=== PATIENT | female | born 1965 | race Caucasian/White ===

== ENCOUNTER 2022-03-31 10:17 | Outpatient (CLI) | payer BC, SELFPAY ==
[2022-03-31 15:46] LABS: Albumin* 4.8 g/dL (3.3-5.0); Chloride* 104 mmol/L (96-114); Sodium* 137 mmol/L (135-149)
[2022-03-31 15:47] LABS: Potassium* 4.4 mmol/L (3.6-5.1)
[2022-03-31 15:49] LABS: Alkaline Phosphatase* 72 U/L (40-150); Aspartate Amino Transferase* 12 U/L (12-35); Bilirubin Total* 0.6 mg/dL (0.1-1.5); Blood Urea Nitrogen* 20 mg/dL (7-30); Carbon Dioxide* 24 mmol/L (20-32); Cholesterol* 245 mg/dL (90-199); Creatinine* 0.7 mg/dL (0.5-1.5); Estimated Glomerular Filt Rate 101 ml/min; Glucose* 100 mg/dL (60-115); Total Protein* 7.4 g/dL (6.0-8.3)
[2022-03-31 15:50] LABS: Alanine Aminotransferase* 14 U/L (4-35); Calcium* 8.9 mg/dL (8.4-10.6); HDL Cholesterol* 93 mg/dL (>=50); LDL Cholesterol Calculated 132 mg/dL (<100); Triglycerides* 100 mg/dL (40-149)
[2022-03-31 20:17] LABS: TSH With Reflex to FT4* 0.885 uIU/mL (0.270-4.200)
== END 2022-03-31 10:18 | disposition home or self-care (01) ==
PROVIDERS: PCP Nurse Practitioner Family; Visit Provider Family Medicine
DX: Z01.419 Encounter for gynecological examination (general) (routine) without abnormal findings (principal); R53.83 Other fatigue; R03.0 Elevated blood-pressure reading, without diagnosis of hypertension; E78.5 Hyperlipidemia, unspecified; R73.03 Prediabetes; Z13.1 Encounter for screening for diabetes mellitus
CPT/HCPCS: 80053; 80061; 84443

== ENCOUNTER 2022-05-25 14:35 | Outpatient (CLI) | payer BC, SELFPAY ==
--- NOTE | 2022-05-25 14:40 | CRLHL7_ITS ---
For Patients: As a result of the Century Cures Act, medical imaging exams and procedure reports are released immediately into your electronic medical record. You may view this report before your referring provider. If you have questions, please contact your health care provider. BILATERAL SCREENING MAMMOGRAM WITH COMPUTER-AIDED DETECTION AND TOMOSYNTHESIS TECHNIQUE: CC and MLO views were obtained. These mammographic images have been obtained using full-field digital technique. These mammographic images were interpreted with the benefit of computer-aided detection. Breast Tomosynthesis was used in this interpretation. COMPARISON FILM: 10/29/20, 08/22/19, 01/11/18. FINDINGS: There are scattered areas of fibroglandular density IMPRESSION: There is no radiographic evidence for malignancy. ASSESSMENT: BI-RADS Category 1: Negative RECOMMENDATION: Routine screening mammogram in 1 year. A lay language report of this examination will be provided to the patient. Jhonny Subramanian M.D. Diagnostic Radiologist [email or web address] GABRIELA/Dictated by: Jhonny Subramanian MD @ 05/26/2022 11:48:00 AM (Electronically Signed)
== END 2022-05-25 14:36 | disposition home or self-care (01) ==
LOC: MAMMO 14:36
PROVIDERS: PCP Nurse Practitioner Family; Visit Provider Family Medicine
DX: Z12.31 Encounter for screening mammogram for malignant neoplasm of breast (principal)
CPT/HCPCS: 77063; 77067

== ENCOUNTER 2023-05-19 08:53 | Outpatient (CLI) | payer BC, SELFPAY | END 2023-05-19 08:54 | disposition home or self-care (01) | LOC: NFLDREF 05-21 06:26 | PROVIDERS: PCP Family Medicine; Referring Provider Family Medicine; Visit Provider Family Medicine | DX: E66.01 Morbid (severe) obesity due to excess calories (principal); E78.5 Hyperlipidemia, unspecified; R73.03 Prediabetes | CPT/HCPCS: 80053; 80061 ==